=== PATIENT | female | born 1960 | race Hispanic/Latino ===

== ENCOUNTER → 2020-08-29 | Outpatient (CLI) | payer BC | END | disposition home or self-care (01) | LOC: RAH 09:12 | PROVIDERS: ATTEND Orthopaedic Surgery | DX: S83.242A Other tear of medial meniscus, current injury, left knee, initial encounter (principal); S83.282A Other tear of lateral meniscus, current injury, left knee, initial encounter; S80.02XA Contusion of left knee, initial encounter; X58.XXXA Exposure to other specified factors, initial encounter; Y93.89 Activity, other specified; Y92.89 Other specified places as the place of occurrence of the external cause; Y99.8 Other external cause status | CPT/HCPCS: 73721 ==

== ENCOUNTER 2021-01-08 06:23 | Day surgery (SDC) | payer BC ==
[2021-01-06 11:35] LABS: BASOPHILS % (AUTO) 0.7 % (0.0-5.0); EOSINOPHILS % (AUTO) 1.6 % (0.0-8.0); HEMATOCRIT 37.6 % (36-48); LYMPHOCYTES % (AUTO) 34.8 % (21.0-51.0); MEAN CORPUSCULAR HEMOGLOBIN 30.5 pg (27.0-33.0); MEAN CORPUSCULAR VOLUME 92.6 fL (79-99); NEUTROPHILS % (AUTO) 56.6 % (40.0-77.0); PLATELET COUNT (AUTO) 235 K/uL (130-400); RED BLOOD CELL COUNT(AUTO) 4.06 MIL/uL (4.00-5.50); RED CELL DISTRIBUTION WIDTH 12.4 % (11.0-15.5); WHITE BLOOD COUNT (AUTO) 6.1 K/uL (4.8-10.8)
[2021-01-06 11:52] LABS: CREATININE 0.8 mg/dL (0.5-1.5); POTASSIUM 4.1 mmol/L (3.5-5.1)
[2021-01-07 10:16] VITALS: BP 128/74
[2021-01-08] VITALS (16 sets, daily range): BP systolic 110–126; BP diastolic 55–85
[~2021-01-08] VITALS: Ht 157.5 cm; Wt 84.7 kg
[2021-01-08] MEDS: CEFAZOLIN SODIUM 1 GM VIAL IVP SCH ×2 (06:00→09:05)
[~2021-01-08 06:23] MED LIST: CALC-1038 PO; MAGN100T5 PO; MVI PO; TAMO20TA4 PO
[2021-01-08] MEDS ORDERED: LACTATED RINGERS 1000ML 1,000 ML IV ONE (06:45)
[2021-01-08] MEDS ORDERED: LIDOCAINE PF 100MG/5ML (2%) SYRINGE 5ML ONE (07:47)
[2021-01-08] MEDS ORDERED: FENTANYL CITRATE PF 50 MCG/1 ML 2ML VIAL ONE (07:48)
[2021-01-08] MEDS ORDERED: PROPOFOL 10 MG/ML 20ML VIAL IV ONE (07:48)
[2021-01-08] MEDS ORDERED: SCOPOLAMINE HYDROBROMIDE 1 EACH ADH..PATCH TD ONE (07:51)
[2021-01-08] MEDS ORDERED: GLYCOPYRROLATE 1 MG/5 ML SYRINGE ONE (09:10)
[2021-01-08] MEDS ORDERED: KETOROLAC 30MG VIAL (30MG/ML) ONE (09:41)
[2021-01-08] MEDS ORDERED: ONDANSETRON 4MG INJ ONE (09:41)
[2021-01-08] MEDS ORDERED: CEPH500B PO (09:50)
[2021-01-08] MEDS ORDERED: ACET1TAB25 PO (09:50)
== END 2021-01-08 11:30 | disposition home or self-care (01) ==
LOC: DAH 06:23
PROVIDERS: ATTEND Orthopaedic Surgery
DX: S83.232A Complex tear of medial meniscus, current injury, left knee, initial encounter (principal); S83.272A Complex tear of lateral meniscus, current injury, left knee, initial encounter; Z20.822 Contact with and (suspected) exposure to COVID-19; E03.9 Hypothyroidism, unspecified; Z90.710 Acquired absence of both cervix and uterus; Z90.49 Acquired absence of other specified parts of digestive tract; Z98.890 Other specified postprocedural states; Z98.51 Tubal ligation status; Z90.12 Acquired absence of left breast and nipple; Z85.3 Personal history of malignant neoplasm of breast; Z79.899 Other long term (current) drug therapy; W19.XXXA Unspecified fall, initial encounter; Y93.89 Activity, other specified; Y92.89 Other specified places as the place of occurrence of the external cause
CPT/HCPCS: 36415; 80048; 85025; 87635; C9803; J0690; J1885; J2001; J2405; J2704; J3010; J3490; J7120

== ENCOUNTER 2024-07-04 14:53 | Emergency (ER) | payer BC, OTHER ==
[~2024-07-04] VITALS: Ht 165.1 cm; Wt 72.6 kg
[~2024-07-04 14:53] MED LIST changes: +ACET-2079 PO; +CEPH500B PO
[2024-07-04 15:27] LABS: BASOPHILS # (AUTO) 0.01 K/uL (0.00-0.20); BASOPHILS % (AUTO) 0.3 % (0.0-5.0); HEMATOCRIT 37.8 % (36-48); IMMATURE GRANULOCYTE ABSOLUTE 0.01 K/uL (0-1); LYMPHOCYTES # (AUTO) 0.9 K/uL (1.0-4.8); LYMPHOCYTES % (AUTO) 27.2 % (21.0-51.0); MEAN CORPUSCULAR HEMOGLOBIN 30.8 pg (27.0-33.0); MEAN CORPUSCULAR HGB CONC 32.8 g/dL (32.0-36.0); MEAN CORPUSCULAR VOLUME 93.8 fL (79-99); MONOCYTES # (AUTO) 0.2 K/uL (0.1-1.0); MONOCYTES % (AUTO) 6.9 % (3.0-13.0); NEUTROPHILS # (AUTO) 2.3 K/uL (1.8-7.7); NEUTROPHILS % (AUTO) 65.3 % (40.0-77.0); PLATELET COUNT (AUTO) 144 K/uL (130-400); RED BLOOD CELL COUNT(AUTO) 4.03 MIL/uL (4.00-5.50); RED CELL DISTRIBUTION WIDTH 12.8 % (11.0-15.5); WHITE BLOOD COUNT (AUTO) 3.5 K/uL (4.8-10.8)
--- NOTE | 2024-07-04 15:30 | ERN ---
General Chief Complaint: Weakness Stated Complaint: WEAKNESS Time Seen by MD: 14:58 Source: patient History of Present Illness Initial Comments Patient is a 64-year-old female coming in with generalized body weakness. Per patient the generalized body weakness has been ongoing for three days long with this patient has been having a cough. No fever or chills. Allergies: Coded Allergies: No Known Drug Allergies (Verified Allergy, Unknown, 01/06/21) Home Meds Active Scripts Loratadine (Loratadine) 10 Mg Tablet, 1 TAB PO DAILY for allergy symptoms for 30 Days, #30 TAB 0 Refills Prov:CLIFFORD ENG MD 07/04/24 Fluticasone Propionate (Flonase Nasal [place]) 50 Mcg/Actuation [place], 2 SPRAY NS DAILY, #16 GM 0 Refills Prov:CLIFFORD ENG MD 07/04/24 Amoxicillin (Amoxicillin) 500 Mg Capsule, 1 CAP PO TID for 10 Days, #30 CAP 0 Refills Prov:CLIFFORD ENG MD 07/04/24 Acetaminophen with Codeine (Acetaminophen-Cod #3 Tablet) 1 Each Tablet, 1-2 EACH PO Q6HPRN PRN for ACUTE POST-OP PAIN, #30 TAB 0 Refills Prov:KYUNG MCCORMACK MD 01/08/21 Cephalexin Monohydrate (Keflex) 500 Mg Cap, 500 MG PO Q8H for 2 Days, #7 CAP 0 Refills Prov:KYUNG MCCORMACK MD 01/08/21 Reported Medications Calcium Carbonate (Calcium) 500 Mg Tablet, 500 MG PO DAILY, TAB 01/07/21 [Mvi] No Conflict Check, 1 TAB PO DAILY 01/07/21 Magnesium Amino Acid Chelate (Magnesium) 100 Mg Tablet, 100 MG PO DAILY, TAB 01/07/21 Tamoxifen Citrate (Tamoxifen Citrate) 20 Mg Tablet, 20 MG PO HS, TAB 01/07/21 Past Medical History Past Medical History: Other Medical History Other: LEFT SIDED BREAST CA Past Surgical History: Other Surgical History Other: LEFRT MASECTOMY ROS Dictation CONSTITUTIONAL: No chills, no fever, no weakness, no diaphoresis, no malaise. HEAD/FACE: No signs of trauma. EENT: No eye pain, no blurred vision, no tearing, no double vision, no ear pain, no ear discharge, no nose pain, no nasal congestion, no throat pain, no throat swelling, no mouth pain. RESPIRATORY: No cough, no orthopnea, no SOB, no stridor, no wheezing. CARDIOVASCULAR: No chest pain, no edema, no palpitations, no syncope. GASTROINTESTINAL/ABDOMINAL: No abdominal pain, no constipation, no diarrhea, no nausea, no vomiting. GENITOURINARY: No abnormal discharge, no dysuria, no frequent urination, no hematuria. No complaints of pain in the genitals. MUSCULOSKELETAL: No back pain, no gout, no joint pain, no joint swelling, no muscle pain, no muscle stiffness, no neck pain. INTEGUMENTARY: No change in color, no change in hair/nails, no dryness, no lesion, no lumps, no rash. NEUROLOGICAL/PSYCH: No anxiety, not depressed, no emotional problem, no headache, no numbness, no pre-existing deficit, no history of seizures, no tremors, no weakness. HEMATOLOGIC/LYMPHATIC: Not anemic, no history of blood clots, no apparent bleeding, no bruising, glands not swollen. All Systems Negative, Except as Noted. Physical Exam Physical Exam Dictation VITAL SIGNS: Reviewed. GENERAL APPEARANCE: Alert, oriented x3, no acute distress, obese. HEAD AND FACE: Non-traumatic. EYES: PERRL, pink conjunctivas, eyelid no trauma, anterior chamber clear. EARS: Pinnas intact and no signs of trauma or erythema. Ear canals clear and no discharge. TMs erythema. NOSE: No discharge, no bleeding. BILATERAL NASAL TURBINATE SWELLING OROPHARYNX: Mouth normal, teeth no caries, tongue pink. Pharynx clear, no erythema. Tonsils no exudates, no abscesses noted. Mucous membrane moist. NECK: Supple, non-tender, no thyromegaly, no masses, no JVD, no bruits. BREAST: Deferred. CHEST: No tenderness, no crepitus, no paradoxical movement, no retractions. LUNGS: Clear, well-ventilated, symmetric, no rales, no wheezing, no rhonchi, no stridor, good breath sounds bilaterally. HEART: Regular rate, regular rhythm, no murmur, no gallops. VASCULAR: No peripheral edema. ABDOMEN: Soft, positive bowel sounds, nondistended, no guarding, nontender, no rebound, no masses no hepatomegaly, no splenomegaly, no Chu's sign, no hernias. RECTAL: Deferred. GENITAL: Deferred. NEUROLOGICAL: Normal speech, gross motor function intact, gross sensory fu nction intact. MUSCULOSKELETAL: Neck nontender, full range of motion, back nontender, full range of motion. EXTREMITIES: Nontender, full range of motion. SKIN: Color pink, dry, no turgor, no rash, no lacerations, no abrasions, no contusions. LYMPHATICS: Deferred. Results Laboratory and Microbiology Lab and Micro Result Laboratory Tests Test 07/04/24 15:15 07/04/24 15:24 07/04/24 15:30 White Blood Count 3.5 K/uL (4.8-10.8) L Red Blood Count 4.03 MIL/uL (4.00-5.50) Hemoglobin 12.4 g/dL (12.0-16.0) Hematocrit 37.8 % (36-48) Mean Corpuscular Volume 93.8 fL (79-99) Mean Corpuscular Hemoglobin 30.8 pg (27.0-33.0) Mean Corpuscular Hemoglobin Concent 32.8 g/dL (32.0-36.0) Red Cell Distribution Width 12.8 % (11.0-15.5) Platelet Count 144 K/uL (130-400) Mean Platelet Volume 11.2 fL (7.5-10.5) H Immature Granulocyte % (Auto) 0.3 % (0-1) Neutrophils (%) (Auto) 65.3 % (40.0-77.0) Lymphocytes (%) (Auto) 27.2 % (21.0-51.0) Monocytes (%) (Auto) 6.9 % (3.0-13.0) Eosinophils (%) (Auto) 0.0 % (0.0-8.0) Basophils (%) (Auto) 0.3 % (0.0-5.0) Neutrophils # (Auto) 2.3 K/uL (1.8-7.7) Lymphocytes # (Auto) 0.9 K/uL (1.0-4.8) L Monocytes # (Auto) 0.2 K/uL (0.1-1.0) Eosinophils # (Auto) 0.00 K/uL (0.00-0.70) Basophils # (Auto) 0.01 K/uL (0.00-0.20) Absolute Immature Granulocyte (auto 0.01 K/uL (0-1) Segmented Neutrophils % 52 % (40-70) Band Neutrophils % 7 % (0-2) H Lymphocytes % (Manual) 21 % (22-44) L Monocytes % (Manual) 4 % (2-9) Eosinophils % (Manual) 1 % (1-6) Nucleated Red Blood Cells 0.0 % (0.0-0.19) Differential Comment MANUAL DIFFERENTIAL Reactive Lymphocytes 15 % (0-0) H White Cell Morphology Comment Platelet Morphology Comment Red Blood Cell Morphology See comments Prothrombin Time 9.6 SEC (9.6-11.6) Prothromb Time International Ratio <= 0.93 (0.85-1.15) Activated Partial Thromboplast Time 26.4 SEC (26.3-35.5) Sodium Level 142 mmol/L (136-145) Potassium Level 3.7 mmol/L (3.5-5.1) Chloride Level 104 mmol/L (101-111) Carbon Dioxide Level 30 mmol/L (21-32) Blood Urea Nitrogen 8 mg/dL (7-18) Creatinine 0.7 mg/dL (0.5-1.0) Glomerular Filtration Rate Calc 96 mL/min (>90) Random Glucose 99 mg/dL (70-105) Total Calcium 8.6 mg/dL (8.5-10.1) Magnesium Level 1.80 mg/dL (1.80-2.40) Total Creatine Kinase 82 U/L (21-232) Troponin I High Sensitivity 10.0 ng/L (4-50) B-Type Natriuretic Peptide 77 pg/mL (0-100) Influenza Type A Antigen Negative For Type A Influenza Type B Antigen Negative For Type B SARS-CoV-2, RNA, NAAT NEGATIVE SARS CoV-2 Group A Streptococcus Rapid negative (NEGATIVE) Labs Reviewed?: Yes EKG/XRAY/US/CT/MRI X-RAY Comment [address] [place] [address], [place] [address] IMAGING REPORT Signed PATIENT: LIUDMILA FARMER MR#: [id number] : 1960 SEX: F AGE: 64 LOCATION: [facility] ORDER [id number] STATUS: REG ER REPORT#: [id number] SERVICE 1459 REASON: weakness/cough ORDERING PHYSICIAN: CLIFFORD ENG MD PROCEDURE: CXR1VW - CHEST 1VW PORTABLE CHEST RADIOGRAPH INDICATION: weakness/cough COMPARISON: None FINDINGS: Heart size is normal. The pulmonary vascularity and cassia appear normal. No abnormal pulmonary parenchymal opacity or consolidation identified. No significant pleural effusion noted. No pneumothorax detected. IMPRESSION: No radiographic evidence for any acute cardiopulmonary process. DICTATED BY: ROSA MENJIVAR MD DATE: 07/04/24 160 ELECTRONICALLY SIGNED BY: ROSA MENIJVAR MD DATE: 07/04/24 1608 MDM MDM: DIFFERENTIAL DIAGNOSIS: SINUSITIS, DEHYDRATION, STRESS, PATIENT IS A 64-YEAR-OLD FEMALE COMING IN TO BE EVALUATED FOR GENERALIZED BODY WEAKNESS. PATIENT STATES HE WAS IN THE UNDER LOT OF STRESS BECAUSE HER MOM HAD A STROKE. SHE STATES HE WAS NOT HUNGRY BECAUSE SHE IS ALSO DEALING WITH A COUGH. ON PHYSICAL EXAM OROPHARYNGEAL ERYTHEMA WITH COBBLESTONING AND BILATERAL NASAL TURBINATE SWELLING WELL TYMPANIC MEMBRANE ERYTHEMA. ALL THIS IS CONSISTENT WITH SINUSITIS. PATIENT WILL BE DISCHARGED WITH THE DIAGNOSIS OF SINUSITIS WITH DEHYDRATION. ED Course Orders Procedure Category Date Status Time Cbc With Differential LAB 07/04/24 In Process 14:59 Prothrombin Time With LAB 07/04/24 Complete INR 14:59 B-Type Natriuretic LAB 07/04/24 In Process Peptide 14:59 Chest 1vw RAD 07/04/24 Resulted 14:59 12 Lead Ekg Tracing- EKG 07/04/24 Complete Technical 14:59 Magnesium LAB 07/04/24 Complete 14:59 Urinalysis Profile LAB 07/04/24 Logged 14:59 Partial LAB 07/04/24 Complete Thromboplastin Time 14:59 Basic Metabolic Panel LAB 07/04/24 Complete 14:59 Covid Rna Naat LAB 07/04/24 Complete 14:59 Influenza Type A & B, LAB 07/04/24 Complete Rapid 14:59 Cardiac Panel LAB 07/04/24 Complete 14:59 Manual Differential LAB 07/04/24 In Process 15:15 Rapid (Group A Strep) LAB 07/04/24 Complete 15:30 0.9%Nacl 1000ml (Ns PHA 07/04/24 Complete 1000ml) 17:00 Ondansetron 4mg Inj PHA 07/04/24 Complete (Zofran 4mg Inj) 17:30 Ondansetron 4mg Inj PHA 07/04/24 Complete (Zofran 4mg Inj) 17:23 Current Medications Medications (Trade) Dose Ordered Sig/Gloria Route PRN Reason Start Time Stop Time Status Last Admin Dose Admin Ondansetron HCl (zoFRAN 4MG INJ) 4 mg ONCE ONCE IVP 07/04/24 17:30 07/04/24 17:31 DC Ondansetron HCl (zoFRAN 4MG INJ) 4 mg STK-MED ONCE .ROUTE 07/04/24 17:23 07/04/24 17:23 DC 07/04/24 17:25 Sodium Chloride 1,000 ml @ 0 mls/hr Q0M ONCE IV 07/04/24 17:00 07/04/24 17:01 DC 07/04/24 17:25 Vital Signs Date Time Temp Pulse Resp B/P (MAP) Pulse Ox O2 Delivery O2 Flow Rate FiO2 07/04/24 16:22 98.6 51 20 113/54 93 Room Air* 0 21 07/04/24 15:15 98.8 49 20 122/69 93 Room Air* 0 21 07/04/24 14:55 98.8 74 20 127/83 95 Room Air 0 DX & DISP Disposition: Discharge Departure Impression: Primary Impression: Sinusitis Additional Impression: Dehydration Condition: Stable Scripts Loratadine (Loratadine) 10 Mg Tablet 1 TAB PO DAILY for allergy symptoms for 30 Days, #30 TAB 0 Refills Prov: CLIFFORD ENG MD 07/04/24 Fluticasone Propionate (Flonase Nasal [place]) 50 Mcg/Actuation [place] 2 SPRAY NS DAILY, #16 GM 0 Refills Prov: CLIFFORD ENG MD 07/04/24 Amoxicillin (Amoxicillin) 500 Mg Capsule 1 CAP PO TID for 10 Days, #30 CAP 0 Refills Prov: CLIFFORD ENG MD 07/04/24 Additional Instructions: FOLLOW-UP WITH PRIMARY CARE PROVIDER IN 1 TO 2 DAYS. TAKE MEDICATIONS DIRECTED HERE IN THE EMERGENCY ROOM. OKAY TO CONTINUE HOME MEDICATIONS UNLESS OTHERWISE DISCUSSED DURING YOUR VISIT IN THE EMERGENCY ROOM TODAY. RETURN TO [facility] EMERGENCY ROOM IF SYMPTOMS WORSEN OR IF THERE IS NO IMPROVEMENT. CALL 911 IF YOU NEED IMMEDIATE ASSISTANCE. TAKE TYLENOL [id number] NEEDED AND IF NO CONTRAINDICATIONS ARE PRESENT. INCREASE ORAL HYDRATION. A WOUND CULTURE OR URINE CULTURE WAS ORDERED HERE IN THE EMERGENCY ROOM DEPARTMENT PLEASE FOLLOW-UP WITH PRIMARY CARE PROVIDER AND ADVISE THEM TO GET REPEAT PORTS FROM OUR FACILITY. IF YOU HAD ANY MELVIN WRAP/SPLINTS THAT WERE APPLIED HERE, PLEASE DO NOT REMOVE THEM UNTIL YOU SEE YOUR PRIMARY CARE OR SPECIALTY. REFERRALS: Referrals: MARIE MARROQUIN (PCP) TIN DE LEON MD Time of Disposition: 17:50 CLIFFORD ENG MD Jul 04, 2024 15:30
--- NOTE | 2024-07-04 15:41 | EKG ---
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
[2024-07-04 15:42] LABS: INR <= 0.93 (0.85-1.15); PROTHROMBIN TIME 9.6 SEC (9.6-11.6)
[2024-07-04 15:43] LABS: PARTIAL THROMBOPLASTIN TIME 26.4 SEC (26.3-35.5)
[2024-07-04 15:44] LABS: CREATININE 0.7 mg/dL (0.5-1.0); POTASSIUM 3.7 mmol/L (3.5-5.1)
[2024-07-04 15:49] LABS: SARS-CoV-2, RNA, NAAT NEGATIVE SARS CoV-2 (NEGATIVE)
[2024-07-04 15:51] LABS: B-TYPE NATRIURETIC PEPTIDE 77 pg/mL (0-100)
[2024-07-04 15:52] LABS: MAGNESIUM 1.8 mg/dL (1.80-2.40)
[2024-07-04 15:55] LABS: INFLUENZA TYPE A Negative For Type A (NEGATIVE); INFLUENZA TYPE B Negative For Type B (NEGATIVE)
[2024-07-04 15:59] LABS: BAND NEUTROPHILS % (MANUAL) 7 % (0-2); EOSINOPHILS % (MANUAL) 1 % (1-6); LYMPHOCYTES % (MANUAL) 21 % (22-44); MONOCYTES % (MANUAL) 4 % (2-9); REACTIVE LYMPHOCYTES 15 % (0-0); SEGMENTED NEUTROPHILS % 52 % (40-70); TOTAL CELLS COUNTED 100
--- NOTE | 2024-07-04 16:08 | HMCIMG ---
PORTABLE CHEST RADIOGRAPH INDICATION: weakness/cough COMPARISON: None FINDINGS: Heart size is normal. The pulmonary vascularity and cassia appear normal. No abnormal pulmonary parenchymal opacity or consolidation identified. No significant pleural effusion noted. No pneumothorax detected. IMPRESSION: No radiographic evidence for any acute cardiopulmonary process.
[2024-07-04 16:14] LABS: MAN.DIFF COMMENT-IMPRESSION MANUAL DIFFERENTIAL
[2024-07-04] MEDS: ondanSETRON 4MG INJ IVP ONE (17:25)
[2024-07-04] MEDS: ondanSETRON 4MG INJ ONE (17:25)
[2024-07-04] MEDS: 0.9%NACL 1000ML 1,000 ML IV ONE (17:25)
[2024-07-04] MEDS ORDERED: LORA10TA7 PO (17:50)
[2024-07-04] MEDS ORDERED: AMOX500C2 PO (17:50)
[2024-07-04] MEDS ORDERED: FLUT16H NS (17:50)
[2024-07-04] MEDS ORDERED: dexaMETHasone SOD PHOSPHATE 4 MG/ML 1ML VIAL IV ONE (18:00)
[2024-07-04 18:34] VITALS: BP 118/60; PULSE 55; RESP 20; TEMP 98.6; O2SAT 93
== END 2024-07-04 18:36 | disposition home or self-care (01) ==
LOC: EDH 14:53
DX: J32.9 Chronic sinusitis, unspecified (principal); E86.0 Dehydration; E03.9 Hypothyroidism, unspecified; Z85.3 Personal history of malignant neoplasm of breast; Z20.822 Contact with and (suspected) exposure to COVID-19; Z79.51 Long term (current) use of inhaled steroids; Z79.899 Other long term (current) drug therapy
CPT/HCPCS: 99285; 82550; 83735; 84484; 80048; 83880; 85025; 85610; 85730; 87880; 87804 ×2; 36415; 87635; 71045; 96374; 93005; J2405